=== PATIENT | female | born 1970 | race Caucasian/White ===

== ENCOUNTER → 2021-12-15 | Outpatient (CLI) | payer OTHER | LOC: US 08:00 → EXRD 12-29 09:00 | DX: R10.13 Epigastric pain (principal); K76.0 Fatty (change of) liver, not elsewhere classified | CPT/HCPCS: 76705 ==

== ENCOUNTER 2021-12-31 16:33 | Emergency (ER) | payer OTHER ==
[2021-12-31 17:27] LABS: HEMOGLOBIN 15.1 gm/dl (12.3-15.3); RED BLOOD COUNT 4.85 M/UL (4.00-5.10); WHITE BLOOD COUNT 8.5 K/UL (4.5-11.0)
[2021-12-31 17:54] LABS: BUN/CREATININE RATIO 18 (0-10)
[2021-12-31] MEDS ORDERED: BAYER CHEWABLE81 MG PO (22:05)
== END 2021-12-31 22:17 | disposition home or self-care (01) ==
LOC: ER1 16:33 → CDU 20:11 → ER1 20:11
PROVIDERS: Physician Assistant
DX: U07.1 COVID-19 (principal); R20.2 Paresthesia of skin; R20.0 Anesthesia of skin; G43.909 Migraine, unspecified, not intractable, without status migrainosus; E11.40 Type 2 diabetes mellitus with diabetic neuropathy, unspecified; Z88.1 Allergy status to other antibiotic agents; G51.0 Bell's palsy
CPT/HCPCS: 70450; 80053; 82550; 82553; 84484; 85025; 93005; 99284; Q0177; U0002

== ENCOUNTER → 2022-01-13 | Outpatient (CLI) | payer OTHER ==
[~2022-01-13] MED LIST: BAYER CHEWABLE81 MG PO
== END ==
LOC: RAD 15:47
DX: M25.551 Pain in right hip (principal)
CPT/HCPCS: 73502

== ENCOUNTER → 2022-04-27 | Outpatient (CLI) | payer MEDICARE | LOC: KOH-I 12:45 | DX: R59.1 Generalized enlarged lymph nodes (principal); R93.89 Abnormal findings on diagnostic imaging of other specified body structures; E04.1 Nontoxic single thyroid nodule | CPT/HCPCS: 76536 ==